=== PATIENT | female | born 1965 | race African-American/Black ===

== ENCOUNTER 2016-11-13 09:59 | Emergency (ER) | payer OTHER ==
[~2016-11-13 09:59] MED LIST: ASA; LEXAPRO10 PO; LIPITOR20 PO; NEXIUM40 PO; NIACIN 500 PO; TOPXL25 PO
== END 2016-11-13 15:32 | disposition home or self-care (01) ==
LOC: ER 09:59
DX: S46.912A Strain of unspecified muscle, fascia and tendon at shoulder and upper arm level, left arm, initial encounter (principal); S56.912A Strain of unspecified muscles, fascia and tendons at forearm level, left arm, initial encounter; F17.200 Nicotine dependence, unspecified, uncomplicated; W01.0XXA Fall on same level from slipping, tripping and stumbling without subsequent striking against object, initial encounter
CPT/HCPCS: 73030-LT; 73080-LT; 99283